=== PATIENT | male | born 1975 | race Caucasian/White ===

== ENCOUNTER 2018-01-26 15:05 | Emergency (ER) | payer OTHER ==
[2018-01-26] MEDS ORDERED: IBUPROFEN 600 MG TAB PO ONE (15:28)
--- NOTE | 2018-01-26 16:21 | EDPHY ---
H & P Stated Complaint: cough, fever, fatigue since saturday, not better Time Seen by Provider: 01/26/18 15:21 HPI/ROS: CHIEF COMPLAINT: Fever and cough HISTORY OF PRESENT ILLNESS: This is a 39-year-old immunocompetent male who presents with 3 days of fever, cough, and fatigue. He has had an occasional mild headache. He does not feel short of breath and only experiences chest pain when he is coughing. He has not had sore throat or earache. He has not taken anything for pain or for fever aside from Advil on the 1st day of the illness. He denies nausea, vomiting, diarrhea, and abdominal pain. He has not had a flu vaccination. REVIEW OF SYSTEMS: A ten system review of systems was performed and is negative with the exception of the items mentioned in the HPI. Past medical history: Negative Past surgical history: Negative Social history: He is . He does not use tobacco or alcohol. He is self employed in the construction business. General Appearance: Alert. Vital signs reviewed and normal. Eyes: Pupils equal and round, no conjunctival injection, no discharge. Anicteric. ENT, Mouth: Mucous membranes are moist, no oropharyngeal erythema or edema. Neck: No lymphadenopathy, supple. Respiratory: Lungs are clear to auscultation; no wheezes, rales, or rhonchi. Cardiovascular: Regular rate and rhythm; no murmur, rub, or gallop. Gastrointestinal: Abdomen is soft and nontender, no masses or organomegaly, bowel sounds normal. Skin: Warm and dry, no rashes on exposed skin, normal color. Back: Nontender to palpation over the thoracolumbar spine. No CVAT. Extremities: No lower extremity edema, no calf tenderness or swelling. Neurological: Alert and oriented. Moving all four extremities easily and equally. Psychiatric: Normal affect. - Personal History Current Tetanus Diphtheria and Acellular Pertussis (TDAP): Yes - Medical/Surgical History Hx Asthma: No Hx Chronic Respiratory Disease: No Hx Diabetes: No Hx Cardiac Disease: No Hx Renal Disease: No Hx Cirrhosis: No Hx Alcoholism: No Hx HIV/AIDS: No Hx Splenectomy or Spleen Trauma: No Other PMH: denies - Social History Smoking Status: Never smoked Constitutional: Initial Vital Signs Temperature (C) 37.6 C 01/26/18 15:10 Heart Rate 88 01/26/18 15:10 Respiratory Rate 16 01/26/18 15:10 Blood Pressure 118/74 01/26/18 15:10 O2 Sat (%) 93 01/26/18 15:10 O2 Delivery Mode Room Air Allergies/Adverse Reactions: No Known Allergies Allergy (Unverified 01/26/18 15:55) Home Medications: Medication Instructions Recorded HYDROcodone/HOMATROPINE HYCODA 1 tsp PO Q4-6PRN PRN #120 ml 01/26/18 [Hycodan Syrup (*)] Medical Decision Making ED Course/Re-evaluation: 39-year-old with cough, subjective fever, fatigue. He has not had a flu vaccination. He has been ill for 3 days. We discussed the possibility of this being influenza. I am not recommending influenza testing at this point in time as it would not change the treatment. I believe that this is a viral illness, likely an upper respiratory infection. He is not hypoxic or febrile. His lungs are clear to auscultation. I do not think that a chest x-ray will be helpful. I do not suspect pneumonia or bronchitis at this point. We discussed symptomatic treatment and danger signs that should prompt him to be re-evaluated. - Data Points Medications Given: Discontinued Medications Ibuprofen (Motrin) 600 mg PO EDNOW ONE Stop: 01/26/18 15:29 Last Admin: 01/26/18 15:29 Dose: 600 mg Departure - Departure Disposition: Home, Routine, Self-Care Clinical Impression: Upper respiratory infection Qualifiers: URI type: unspecified viral URI Qualified Code(s): J06.9 - Acute upper respiratory infection, unspecified Condition: Good Instructions: Upper Respiratory Infection (ED), Viral Syndrome (ED) Additional Instructions: As we discussed, I do not think that you have pneumonia. This could be influenza. We have not tested you for flu, as you are too far and this illness to benefit from an antiviral medication (these have minimal benefits regardless of time frame). I recommend symptomatic treatment. Adult Pain & Fever Control: We recommend Acetaminophen (Tylenol) and Ibuprofen (Motrin,Advil) for pain and fever control. When fever is high or pain severe, both drugs can be used at the same time, but at different intervals. Please note the time differences. Your dose is: Acetaminophen 650mg every 4 to 6 hours Ibuprofen 400mg every 6 hours with food OR Note: do not take Acetaminophen with Hydrocodone (Vicodin, Lortab) or Oycodone (Percocet). These medications also contain Acetaminophen. No more than 3000mg of Acetaminophen should be taken in 24 hours (for an adult). I am prescribing cough medication that contains opiate pain medicine. You should not drive or engage in dangerous activities when taking this medication. Continue with the herbal teas. Referrals: Will Skaggs MD [Primary Care Provider] - As per Instructions Prescriptions: HYDROcodone/HOMATROPINE HYCODA [Hycodan Syrup (*)] 1 tsp PO Q4-6PRN PRN #120 ml PRN Reason: Cough, Severe
[2018-01-26 16:48] VITALS: BP 120/72
== END 2018-01-26 16:46 | disposition home or self-care (01) ==
LOC: CED 15:05
DX: J06.9 Acute upper respiratory infection, unspecified (principal); D84.9 Immunodeficiency, unspecified